=== PATIENT | male | born 1975 | race Caucasian/White ===

== ENCOUNTER 2022-01-04 14:51 | Emergency (ER) | payer OTHER, SELFPAY ==
[2022-01-04 15:04] VITALS: BP 147/87; PULSE 64; RESP 18; TEMP 36.7; O2SAT 100
--- NOTE | 2022-01-04 15:29 | ED.URI ---
HPI - URI/Sore Throat General Chief Complaint: Upper Respiratory Infection Stated Complaint: sinus inf Time Seen by Provider: 01/04/22 15:29 Source: patient Mode of arrival: ambulatory Limitations: no limitations History of Present Illness HPI Narrative: 46-year-old male presents with complaint of nasal congestion, sinus pressure, postnasal drainage for 2 weeks. Taking Sudafed with no relief. Reports recently is feeling fatigued, worsening of sinus pressure and green yellowish drainage. Afebrile. Reports he gets sinus infection once a year. All systems reviewed and negative except as noted above. Related Data Allergies Allergy/AdvReac Type Severity Reaction Status Date / Time No Known Allergies Allergy Verified 01/04/22 15:30 Review of Systems Review of Systems: CONSTITUTIONAL: Denies fever, chills, or sweats. EYES: Denies visual changes, redness, or discharge. ENT: Reports rhinorrhea, congestion, sinus pressure. Denies sore throat. Left ear pain. CARDIOVASCULAR: Denies chest pain, palpitations, or edema. RESPIRATORY: Denies cough or dyspnea. GASTROINTESTINAL: Denies abdominal pain, nausea, vomiting, or diarrhea. GENITOURINARY: Denies dysuria or hematuria. SKIN: Denies rash or itching. MUSCULOSKELETAL: Denies back pain, joint pain, or myalgia. NEUROLOGIC: Denies headache, numbness, or weakness. PSYCHIATRIC: Denies anxiety or depression. All other systems reviewed are negative, except as documented in HPI. PMFSH Comments At time of signature, agree with nursing past medical, surgical, social and family history. There is no relevant family history pertinent to the presenting complaint. Exam Narrative: GENERAL: This is a well-nourished, well-developed patient, in no apparent distress. HEAD: normocephalic, atraumatic. EYES: PERRL. Sclera clear/white. Vision is grossly intact. EARS: External ears normal, auditory canals clear and without drainage, Fluid to left TM. NOSE: External nose normal with no obvious nasal discharge, nares without redness, no rhinorrhea. Bilateral maxillary sinus tenderness. THROAT: Mucous membranes moist, Clear postnasal drainage. NECK: Neck supple, non-tender without lymphadenopathy, masses or thyromegaly. CARDIOVASCULAR: Regular rate and rhythm without murmurs, gallops, or rubs. RESPIRATORY: Clear to auscultation. Breath sounds equal bilaterally. No wheezes, rales, or rhonchi. SKIN: warm, Dry, intact with no suspicious lesions or rash, good texture and turgor. NEURO: awake, alert, and oriented to person, place and time. There were no obvious focal neurologic abnormalities. EXTREMITIES: No joint tenderness, effusion, or edema noted. Course Course Level of Care: Express Care Visit Vital Signs Vital signs: Vital Signs Temperature 36.7 C 01/04/22 15:04 Pulse Rate 64 01/04/22 15:04 Respiratory Rate 18 01/04/22 15:04 Blood Pressure 147/87 H 01/04/22 15:04 Pulse Oximetry 100 01/04/22 15:04 Oxygen Delivery Room Air 01/04/22 15:04 Temperature 36.7 C 01/04/22 15:04 Pulse Rate 64 01/04/22 15:04 Respiratory Rate 18 01/04/22 15:04 Blood Pressure 147/87 H 01/04/22 15:04 Pulse Oximetry 100 01/04/22 15:04 Oxygen Delivery Room Air 01/04/22 15:04 Reviewed MDM - URI/Sore Throat MDM Narrative Medical decision making narrative: Patient is aware of diagnosis, understands and agrees to treatment plan. Anticipatory guidance given. Patient agrees to follow-up as directed and is aware of reasons to seek care at the emergency department. Portions of this record may have been created with voice recognition software Differential Diagnosis Differential diagnosis: Likely upper respiratory infection, otitis media, sinusitis and viral infection Discharge Plan Discharge Clinical Impression: Acute bacterial sinusitis Patient Disposition: Home, Self-Care Condition: Stable Instructions: Antibiotic Form, Sinusitis (ED) Additional Instruc
== END 2022-01-04 15:40 | disposition home or self-care (01) ==
PROVIDERS: Emergency Provider Nurse Practitioner Family
DX: J01.90 Acute sinusitis, unspecified (principal)
CPT/HCPCS: 99203; G0463

== ENCOUNTER 2022-09-14 06:08 | Day surgery (SDC) | payer OTHER, SELFPAY ==
[2022-06-04 11:22] VITALS: BMI 38.2
[2022-06-09 10:33] VITALS: BMI 37.6
[2022-08-28 13:18] VITALS: BMI 37.8
--- NOTE | 2022-09-11 14:42 | PM.HPGS ---
History of Present Illness History of Present Illness Consent: Risks, benefits, and alternatives have been discussed and questions answered. Patient agrees to proceed with procedure. Chief complaint: Neoplasm Screening Narrative: Yehuda Hamilton is a 47 year old male referred for colon cancer screening. Review of Systems Review of Systems: All systems reviewed & are unremarkable except as noted in HPI and below PMFSH Past Medical History Medical History Obesity Surgical History Surgical History (Updated 05/13/22 @ 16:30 by Caridad Arndt MD) H/O vasectomy 2009 Hx of cataract surgery bilat Family History Family History Father Cancer Diabetes mellitus Hypertension Heart disease Mother Cancer Hypertension Sibling Thyroid condition Grandparent Cancer Hypertension Heart disease Social History Social History Smoking status: Never smoker Alcohol intake: current Drinks per week: 5 Alcohol use details: socially Substance use: never Substance use type: does not use Lack of Transportation: No Lack of Food: Never True Current Housing: I Have Housing Concerned About Future Housing: No Difficulty Paying Gas/Electric Bills: No Difficulty Paying for Meds: No Currently Unemployed: No Education: Master's Degree or Higher Difficulty w/ Childcare or Family Care: No Living arrangements: with family Occupation/Education: occupation Additional occupation/education comments: [employer] Gender identity (if verbalized by the patient): Male Spiritual care concerns: No Agree to blood products: Yes Meds Home Medications and Allergies Home Medications Medication Instructions Recorded Confirmed Type No Home Medications 06/09/22 09/14/22 History Allergies Allergy/AdvReac Type Severity Reaction Status Date / Time No Known Allergies Allergy Verified 09/14/22 06:28 Exam Const: General: alert Orientation/consciousness: patient oriented x3 Resp: Auscultation: clear to auscultation bilaterally Cardio: Rhythm: regular rhythm GI: GI Palp: Yes Soft to palpation and No Tenderness to palpation present (GI) Neuro: General: patient oriented x3 Assessment and Plan Assessment and plan (1) Colon cancer screening: Code(s): Z12.11 - Encounter for screening for malignant neoplasm of colon Status: Acute Assessment and Plan: Colonoscopy with possible biopsy or polypectomy or cautery or injection of substances.
--- NOTE | 2022-09-14 07:01 | P.PNAN_ITS ---
Anes - Initial Pre Proc Eval Procedure: Operation Date: 09/14/22 07:30 Proposed Procedures p Screening Colonoscopy - Rich Youngblood MD Date/Time: 09/14/22 07:01 Surgeon: Rich Youngblood MD Pre Op Diagnosis: Neoplasm Screening Patient Data Age: 47 Gender: M Height: 1.8 m Weight: 122.7 kg Allergies Allergy/AdvReac Type Severity Reaction Status Date / Time No Known Allergies Allergy Verified 09/14/22 06:28 Home Medications Medication Instructions Recorded Confirmed Type No Home Medications 06/09/22 09/14/22 History Patient hx anesthesia problems: none Family hx anesthesia problems: none Results Review: All pre-operative results and documents have been reviewed as part of the pre- operative evaluation. [facility] Past Medical History Medical History (Updated 09/14/22 @ 07:02 by Gurjit Dumont MD) Obesity Surgical History Surgical History (Updated 05/13/22 @ 16:30 by Caridad Arndt MD) H/O vasectomy 2009 Hx of cataract surgery bilat Family History Family History (Updated 05/13/22 @ 15:04 by Codey Miles MA) Father Cancer Diabetes mellitus Hypertension Heart disease Mother Cancer Hypertension Sibling Thyroid condition Grandparent Cancer Hypertension Heart disease Social History Social History (Updated 05/13/22 @ 15:23 by Codey Miles MA) Smoking status: Never smoker Alcohol intake: current Drinks per week: 5 Alcohol use details: socially Substance use: never Substance use type: does not use Lack of Transportation: No Lack of Food: Never True Current Housing: I Have Housing Concerned About Future Housing: No Difficulty Paying Gas/Electric Bills: No Difficulty Paying for Meds: No Currently Unemployed: No Education: Master's Degree or Higher Difficulty w/ Childcare or Family Care: No Living arrangements: with family Occupation/Education: occupation 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 [employer] Gender identity (if verbalized by the patient): Male Spiritual care concerns: No Agree to blood products: Yes Anes - Eval Final PreProcedure Day of Procedure 09/14/22 07:01 Patient weight: obese Heart: regular rate and rhythm Lungs: clear to auscultation and normal air movement Airway: Mallampati scale class II Neurological: alert and oriented Last oral intake: >/= 8 hours ASA classification: II Emergent: no Anesthetic plan: proceed Anesthesia type and monitoring: general GIVS Results Review: All pre-operative results and documents have been reviewed as part of the pre- operative evaluation. Informed Consent: The patient's anesthetic plan and its attendant risks and benefits were discussed with the patient/family/POA. Questions were solicited and answers provided to the satisfaction of the patient/family/POA.
[2022-09-14 07:19] VITALS: BP 138/90; PULSE 68; RESP 14; TEMP 36.8; O2SAT 99
[2022-09-14] MEDS: LACTATED RINGERS 1,000 ML 150 ML IV CONT (07:19)
[2022-09-14 07:49] VITALS: BP 95/69; PULSE 60; RESP 18; O2SAT 94
[2022-09-14 07:59] VITALS: BP 100/74; PULSE 63; RESP 20; O2SAT 97
[2022-09-14 08:09] VITALS: BP 107/79; PULSE 61; RESP 20; O2SAT 95
--- NOTE | 2022-09-14 11:30 | WPDANESPN ---
Anes - Prog Note Post-Op Date/Time: 09/14/22 11:30 Cardiovascular status: normal Respiratory status: normal Airway patency: baseline Mental status: baseline Post-Op hydration status: normal Vital Signs: Last Vital Signs Temp 36.8 C 09/14/22 07:19 Pulse 61 09/14/22 08:09 Resp 20 09/14/22 08:09 BP 107/79 09/14/22 08:09 Pulse Ox 95 09/14/22 08:09 O2 Del Method Room Air 09/14/22 08:09 Pain Score (VAS): 0 I/O: Intake & Output 09/13/22 09/14/22 09/14/22 23:59 07:59 15:59 Intake Total 200 200 Balance 200 200 Post-procedural complaints: none Patient Feedback: Patient satisfied with anesthetic care.
== END 2022-09-14 08:13 | disposition home or self-care (01) ==
PROVIDERS: PCP Family Medicine; Visit Provider Internal Medicine Gastroenterology
PROC: 0DJD8ZZ Inspection of Lower Intestinal Tract, Via Natural or Artificial Opening Endoscopic (ICD-10-PCS; CPT 45378; principal; 2022-09-14 07:30)
DX: Z12.11 Encounter for screening for malignant neoplasm of colon (principal)
CPT/HCPCS: 45378

== ENCOUNTER 2023-06-24 09:16 | Outpatient (CLI) | payer OTHER, SELFPAY ==
--- NOTE | ~2023-06-24 | US_ITS ---
Limited Abdominal Sonogram: Real-time sonographic imaging of the right upper quadrant was performed. Clinical History: Abnormal findings of blood chemistry Findings: The liver appears mildly echogenic with no evidence of mass lesion or bile duct dilatation . Main portal vein demonstrates normal direction of flow. The gallbladder is well distended, and appe ars normal with no evidence of gallstone or wall thickening. The common bile duct measures 5 mm. The visualized pancreas, aorta, and IVC are unremarkable. Impression: Mild fatty infiltration of liver. Reviewed, dictated and finalized at location M. Impression: Mild fatty infiltration of liver.
== END 2023-06-24 09:17 ==
LOC: MICIMG 09:18
PROVIDERS: PCP Family Medicine; Visit Provider Family Medicine
DX: R79.89 Other specified abnormal findings of blood chemistry (principal); K76.0 Fatty (change of) liver, not elsewhere classified
CPT/HCPCS: 76705

== ENCOUNTER 2024-06-28 13:44 | Outpatient (CLI) | payer OTHER, SELFPAY ==
--- NOTE | ~2024-06-28 | CT_ITS ---
CT sinus wo con Ordering provider: Caridad Arndt MD History: . J34.89 - Other specified disorders of nose and nasal sinuses . Comparison: None. Technique: Thin slice Scans CT of the paranasal sinuses was performed with coronal and sagittal refor matted images. No IV contrast. . Automated exposure control and iterative reconstruction technique w ere employed. The dose-length product was 303.01 mGy-cm. Findings: NASAL SEPTUM: midline. OSTEOMEATAL UNITS: Bilaterally obliterated. NASAL TURBINATES AND NASOPHARYNX: Normal. PARANASAL SINUSES: Bilateral maxillary, ethmoid, sphenoid and frontal sinus disease. VISUALIZED MASTOIDS: Normal as visualized. BONES: Normal. SUPERFICIAL SOFT TISSUES/VISUALIZED BRAIN PARENCHYMA: Normal. IMPRESSION: Pansinusitis. Reviewed, dictated and finalized at location A. IMPRESSION: Pansinusitis.
== END 2024-06-28 13:45 | disposition home or self-care (01) ==
LOC: MICIMG 13:45
PROVIDERS: PCP Family Medicine; Visit Provider Family Medicine
DX: J34.89 Other specified disorders of nose and nasal sinuses (principal)
CPT/HCPCS: 70486